=== PATIENT | female | born 1935 | race Caucasian/White ===

== ENCOUNTER 2017-07-30 10:10 | Inpatient (IN) | payer OTHER, MEDICAID, MEDICARE ==
[2017-07-30 12:19] LABS: WHITE BLOOD COUNT 16.5 10^3/ul (4.8-10.8)
[2017-07-30 12:19] LABS: ABNORMAL IP MESSAGE 1; HEMATOCRIT 37.7 % (37.0-47.0); HEMOGLOBIN 13.1 g/dl (12.0-16.0); MEAN CORPUSCULAR HEMOGLOBIN 29.5 pg (29.0-33.0); MEAN CORPUSCULAR HGB CONC 34.7 g/dl (32.0-37.0); MEAN CORPUSCULAR VOLUME 84.9 fl (82.0-101.0); MEAN PLATELET VOLUME 11.4 fl (7.4-10.4); PLATELET COUNT 179 10^3/UL (140-415); RED BLOOD COUNT 4.44 10^6/ul (4.20-5.40)
[2017-07-30 12:34] LABS: ADD MAN DIFF? YES; POSITIVE DIFF @See below
[2017-07-30 12:37] LABS: INR 1.09; PROTIME 14.3 Sec (11.9-14.9); PT RATIO 1.1
[2017-07-30 12:38] LABS: ANION GAP 15 (8-16); BLOOD UREA NITROGEN 44 mg/dl (7-20); CALCIUM 8.9 mg/dl (8.4-10.2); CARBON DIOXIDE 25 mmol/L (21-31); CHLORIDE 96 mmol/L (97-110); CREATININE 1.79 mg/dl (0.44-1.00); GLUCOSE 105 mg/dl (70-220); PARTIAL THROMBOPLASTIN TIME 34.6 Sec (25.0-35.0); POTASSIUM 3.7 mmol/L (3.5-5.1); SODIUM 132 mmol/L (135-144)
[2017-07-30 12:49] LABS: TROPONIN-I 0.041 ng/ml (0.00-0.12)
[2017-07-30] MEDS: VANCOMYCIN 1 GM (PMX) 250 ML IVPB (13:00)
[2017-07-30 13:13] LABS: ANISOCYTOSIS 1+ (0-0); BAND NEUTROPHILS #M 1.4 10^3/ul (0.0-0.6); BAND NEUTROPHILS % (M) 9 % (0-4); EOSINOPHILS % (M) 1 % (0-7); LYMPHOCYTES #M 1.3 10^3/ul (0.8-2.9); LYMPHOCYTES % (M) 8 % (15-51); METAMYELOCYTES #M 0.1 10^3/ul (0.0-0.0); METAMYELOCYTES %M 1 % (0-0); MONOCYTE #M 1.4 10^3/ul (0.3-0.9); MONOCYTES % (M) 9 % (0-11); MYELOCYTES #M 0.1 10^3/ul (0.0-0.0); MYELOCYTES % (M) 1 % (0-0); PLASMA CELLS #M 0.4 10^3/ul (0.0-0.0); PLASMAC%(M) 3 % (0); PLATELET ESTIMATE NORMAL; POIKILOCYTOSIS 3+ (0-0); POLYCHROMASIA 3+ (0-0); SEG NEUT #M 11.5 10^3/ul (1.7-7.5); SEGMENTED NEUTROPHILS (M) % 68 % (39-77); SMUDGE%M 1 % (0-0)
[2017-07-30] MEDS: SODIUM CHLORIDE 0.9% 1L BAG IV* (13:20)
[2017-07-30] MEDS ORDERED: ACETAMINOPHEN 325 MG TAB PO (14:30)
[2017-07-30] MEDS ORDERED: ONDANSETRON 4 MG INJ IV ×2 (14:30→16:00)
[2017-07-30 14:40] LABS: LACTIC ACID 1.9 mmol/L (0.5-2.0)
[2017-07-30] MEDS: CEFEPIME 2GM/50 ML (PMX) 50 ML IVPB (15:29)
[2017-07-30] MEDS ORDERED: ALBUTEROL/IPRATROPIUM (NEB) 3 ML AMP HHN (16:00)
[2017-07-30] MEDS ORDERED: NACL 0.9% 3 ML SYG IV (16:00)
[2017-07-30 16:13] LABS: LACTIC ACID 2.4 mmol/L (0.5-2.0)
[2017-07-30] MEDS: SOD CHLORIDE 0.9% 1,000 ML IV (17:41)
[2017-07-30] MEDS ORDERED: AZITHROMYCIN 500MG/NS (PMX) 250 ML IVPB (18:00)
[2017-07-30] MEDS: CEFTRIAXONE 2 GM/50 ML (PMX) 50 ML IVPB (18:03)
[2017-07-30 18:33] LABS: LACTIC ACID 2.5 mmol/L (0.5-2.0)
[2017-07-30] MEDS: AZITHROMYCIN 500MG/NS (PMX) 250 ML IVPB (18:39)
[2017-07-30] MEDS: NIFEdipine (XL) 60 MG TAB PO (19:00)
[2017-07-30] MEDS: ALBUTEROL/IPRATROPIUM (NEB) 3 ML AMP HHN (20:43)
[2017-07-30] MEDS ORDERED: CALCIUM CARBONATE 500 MG CHEW TAB PO (21:00)
[2017-07-30] MEDS: BRIMONIDINE 0.1% 5 ML OPH BOTH EYES (21:04)
[2017-07-30] MEDS: COLESEVELAM 625 MG TAB PO (21:07)
[2017-07-30] MEDS: HEPARIN 5,000 UNIT/0.5 ML VIAL SC (22:33)
[2017-07-31 00:05] LABS: ADD UMIC YES; UR ASCORBIC ACID NEGATIVE (NEGATIVE); UR BACTERIA FEW /HPF (NONE SEEN); UR BILIRUBIN (Dip) NEGATIVE (NEGATIVE); UR BLOOD (Dip) 2+ mg/dL (NEGATIVE); UR CLARITY CLOUDY (CLEAR); UR COLOR YELLOW (YELLOW); UR GLUCOSE (Dip) NEGATIVE (NEGATIVE); UR KETONES (Dip) NEGATIVE (NEGATIVE); UR LEUKOCYTE ESTERASE (Dip) 3+ Leu/ul (NEGATIVE); UR NITRITE (Dip) NEGATIVE (NEGATIVE); UR RBC 34 /HPF (0-5); UR SPECIFIC GRAVITY (Dip) 1.011 (1.003-1.030); UR TOTAL PROTEIN (Dip) 1+ mg/dl (NEGATIVE); UR UROBILINOGEN (Dip) NEGATIVE (NEGATIVE); UR WBC > 182 /HPF (0-5)
[2017-07-31] MEDS ORDERED: LEVOTHYROXINE 50 MCG TAB (05:39)
[2017-07-31] MEDS: HEPARIN 5,000 UNIT/0.5 ML VIAL SC ×3 (05:54→21:44)
[2017-07-31] MEDS: LEVOTHYROXINE 50 MCG TAB PO (06:21)
[2017-07-31 06:38] LABS: WHITE BLOOD COUNT 17.8 10^3/ul (4.8-10.8)
[2017-07-31 06:38] LABS: ABNORMAL IP MESSAGE 1; HEMATOCRIT 31.7 % (37.0-47.0); HEMOGLOBIN 11.1 g/dl (12.0-16.0); MEAN CORPUSCULAR HEMOGLOBIN 29.5 pg (29.0-33.0); MEAN CORPUSCULAR VOLUME 84.3 fl (82.0-101.0); MEAN PLATELET VOLUME 11.1 fl (7.4-10.4); PLATELET COUNT 206 10^3/UL (140-415); RED BLOOD COUNT 3.76 10^6/ul (4.20-5.40); RED CELL DISTRIBUTION WIDTH 14.2 % (11.5-14.5)
[2017-07-31 06:50] LABS: POSITIVE DIFF @See below
[2017-07-31 06:51] LABS: ADD MAN DIFF? YES
[2017-07-31 07:13] LABS: LACTIC ACID 1.4 mmol/L (0.5-2.0)
[2017-07-31] MEDS: ALBUTEROL/IPRATROPIUM (NEB) 3 ML AMP HHN ×3 (08:43→19:07)
[2017-07-31 09:22] LABS: CREATINE KINASE < 20 IU/L (23-200)
[2017-07-31 09:25] LABS: BAND NEUTROPHILS #M 1.4 10^3/ul (0.0-0.6); BAND NEUTROPHILS % (M) 8 % (0-4); BURR CELLS 1+ (0-0); GIANT THROMBO% (M) 1 % (0-0); LYMPHOCYTES #M 2.4 10^3/ul (0.8-2.9); LYMPHOCYTES % (M) 14 % (15-51); METAMYELOCYTES #M 0.1 10^3/ul (0.0-0.0); METAMYELOCYTES %M 1 % (0-0); MONOCYTE #M 1.6 10^3/ul (0.3-0.9); MONOCYTES % (M) 9 % (0-11); PLATELET ESTIMATE NORMAL; POIKILOCYTOSIS 1+ (0-0); SEG NEUT #M 12.2 10^3/ul (1.7-7.5); SEGMENTED NEUTROPHILS (M) % 67 % (39-77); SMUDGE%M 5 % (0-0)
[2017-07-31 09:30] LABS: ALANINE AMINOTRANSFERASE 30 IU/L (13-69); ALBUMIN 2.5 g/dl (3.3-4.9); ALKALINE PHOSPHATASE 266 IU/L (42-121); ANION GAP 13 (8-16); ASPARTATE AMINO TRANSFERASE 35 IU/L (15-46); BILIRUBIN,INDIRECT 0.3 mg/dl (0-1.1); BILIRUBIN,TOTAL 0.3 mg/dl (0.2-1.3); BLOOD UREA NITROGEN 23 mg/dl (7-20); CALCIUM 8.2 mg/dl (8.4-10.2); CARBON DIOXIDE 25 mmol/L (21-31); CHLORIDE 99 mmol/L (97-110); CREATININE 1.23 mg/dl (0.44-1.00); GLUCOSE 113 mg/dl (70-220); POTASSIUM 3.9 mmol/L (3.5-5.1); SODIUM 133 mmol/L (135-144); TOTAL PROTEIN 5.7 g/dl (6.1-8.1)
[2017-07-31 09:31] LABS: ALBUMIN/GLOBULIN RATIO 0.78
[2017-07-31] MEDS: SOD CHLORIDE 0.9% 1,000 ML IV ×2 (09:40→15:00)
[2017-07-31] MEDS: DOCUSATE SODIUM 100 MG CAP PO ×2 (09:47→21:33)
[2017-07-31] MEDS: BRIMONIDINE 0.1% 5 ML OPH BOTH EYES ×2 (09:47→21:33)
[2017-07-31] MEDS: POLYETHYLENE GLYCOL 17 GM PACKET PO (09:47)
[2017-07-31] MEDS: COLESEVELAM 625 MG TAB PO ×2 (09:49→21:33)
[2017-07-31] MEDS: NIFEdipine (XL) 60 MG TAB PO ×2 (09:49→21:33)
[2017-07-31] MEDS: ASPIRIN 81 MG TAB PO (09:50)
[2017-07-31] MEDS: CALCIUM CARBONATE 500 MG CHEW TAB PO ×2 (09:51→21:33)
[2017-07-31 13:16] LABS: CK-MB 0.58 ng/ml (0.0-2.4); TROPONIN-I 0.044 ng/ml (0.00-0.12)
[2017-07-31 14:04] LABS: HEMOGLOBIN A1C 5.8 % (0-5.9)
[2017-07-31 14:13] LABS: PHOSPHORUS 3.5 mg/dl (2.5-4.9)
[2017-07-31 14:13] LABS: MAGNESIUM 2.1 mg/dl (1.7-2.5)
[2017-07-31 14:31] LABS: FREE T4 (FREE THYROXINE) 1.38 ng/dl (0.85-1.93)
[2017-07-31 14:47] LABS: CHOL/HDL RATIO 9.4 RATIO; HDL CHOLESTEROL 15 mg/dl (33-92); LDL CHOLESTEROL,CALCULATED 79 mg/dl; TRIGLYCERIDES 238 mg/dl (0-149)
[2017-07-31 14:47] LABS: CHOLESTEROL 142 mg/dl (100-200)
[2017-07-31] MEDS: AZITHROMYCIN 500MG/NS (PMX) 250 ML IVPB (17:18)
[2017-07-31 19:35] LABS: ADD UMIC YES; UR ASCORBIC ACID NEGATIVE (NEGATIVE); UR BILIRUBIN (Dip) NEGATIVE (NEGATIVE); UR BLOOD (Dip) 1+ mg/dL (NEGATIVE); UR CLARITY CLEAR (CLEAR); UR COLOR YELLOW (YELLOW); UR GLUCOSE (Dip) NEGATIVE (NEGATIVE); UR KETONES (Dip) NEGATIVE (NEGATIVE); UR LEUKOCYTE ESTERASE (Dip) TRACE Leu/ul (NEGATIVE); UR NITRITE (Dip) NEGATIVE (NEGATIVE); UR RBC 8 /HPF (0-5); UR SPECIFIC GRAVITY (Dip) 1.009 (1.003-1.030); UR TOTAL PROTEIN (Dip) NEGATIVE (NEGATIVE); UR UROBILINOGEN (Dip) NEGATIVE (NEGATIVE); UR WBC 20 /HPF (0-5)
[2017-07-31 20:33] LABS: CREATININE,URINE RANDOM 39.95 mg/dl (20-320)
[2017-07-31 20:33] LABS: SODIUM,URINE RANDOM 80 mmol/L (30-90)
[2017-07-31] MEDS: ZOLPIDEM 5 MG TAB PO (21:33)
[2017-07-31] MEDS: AZTREONAM 1 GM/NS (PMX) 50 ML IVPB (21:34)
[2017-08-01 04:55] LABS: ADD MAN DIFF? NO
[2017-08-01 04:59] LABS: ABNORMAL IP MESSAGE 1; BASOPHIL # 0.1 10^3/ul (0.0-0.1); BASOPHILS % 0.7 % (0.0-2.0); EOSINOPHILS # 0.1 10^3/ul (0.0-0.5); EOSINOPHILS % 0.7 % (0.0-7.0); HEMATOCRIT 29.2 % (37.0-47.0); HEMOGLOBIN 10.3 g/dl (12.0-16.0); LYMPHOCYTES # 2.5 10^3/ul (0.8-2.9); LYMPHOCYTES % 14.9 % (15.0-51.0); MEAN CORPUSCULAR HEMOGLOBIN 29.3 pg (29.0-33.0); MEAN CORPUSCULAR HGB CONC 35.3 g/dl (32.0-37.0); MEAN CORPUSCULAR VOLUME 83.2 fl (82.0-101.0); MEAN PLATELET VOLUME 10.6 fl (7.4-10.4); MONOCYTE # 2.4 10^3/ul (0.3-0.9); MONOCYTES % 14.6 % (0.0-11.0); NEUTROPHIL # 10.6 10^3/ul (1.6-7.5); NEUTROPHILS % 64.4 % (39.0-77.0); PLATELET COUNT 220 10^3/UL (140-415); RED BLOOD COUNT 3.51 10^6/ul (4.20-5.40); RED CELL DISTRIBUTION WIDTH 14.2 % (11.5-14.5)
[2017-08-01 04:59] LABS: WHITE BLOOD COUNT 16.4 10^3/ul (4.8-10.8)
[2017-08-01 05:12] LABS: POSITIVE DIFF @See below
[2017-08-01 05:31] LABS: PHOSPHORUS 2.9 mg/dl (2.5-4.9)
[2017-08-01 05:31] LABS: MAGNESIUM 2.1 mg/dl (1.7-2.5)
[2017-08-01 05:32] LABS: ANION GAP 11 (8-16); BLOOD UREA NITROGEN 14 mg/dl (7-20); CALCIUM 8.3 mg/dl (8.4-10.2); CARBON DIOXIDE 25 mmol/L (21-31); CHLORIDE 101 mmol/L (97-110); CREATININE 1.05 mg/dl (0.44-1.00); GLUCOSE 128 mg/dl (70-220); POTASSIUM 3.4 mmol/L (3.5-5.1); SODIUM 134 mmol/L (135-144)
[2017-08-01] MEDS: LEVOTHYROXINE 50 MCG TAB PO (06:04)
[2017-08-01] MEDS: HEPARIN 5,000 UNIT/0.5 ML VIAL SC ×3 (06:05→21:11)
[2017-08-01] MEDS: BRIMONIDINE 0.1% 5 ML OPH BOTH EYES ×2 (08:33→21:13)
[2017-08-01] MEDS: CALCIUM CARBONATE 500 MG CHEW TAB PO ×2 (08:33→21:12)
[2017-08-01] MEDS: DOCUSATE SODIUM 100 MG CAP PO ×2 (08:34→21:13)
[2017-08-01] MEDS: NIFEdipine (XL) 60 MG TAB PO ×2 (08:34→21:00)
[2017-08-01] MEDS: COLESEVELAM 625 MG TAB PO ×2 (08:34→21:10)
[2017-08-01] MEDS: POLYETHYLENE GLYCOL 17 GM PACKET PO (08:35)
[2017-08-01] MEDS: ASPIRIN 81 MG TAB PO (08:38)
[2017-08-01] MEDS: AZTREONAM 1 GM/NS (PMX) 50 ML IVPB ×2 (08:39→21:14)
[2017-08-01] MEDS: ALBUTEROL/IPRATROPIUM (NEB) 3 ML AMP HHN ×3 (08:47→19:25)
[2017-08-01] MEDS: POTASSIUM CHLORIDE (SR) 20 MEQ TAB PO (10:49)
[2017-08-01] MEDS: SOD CHLORIDE 0.9% 1,000 ML IV (10:52)
[2017-08-01] MEDS: NA PHOSPHATE/BIPHOS 133 ML ENEMA PR (13:55)
[2017-08-01] MEDS: AZITHROMYCIN 500MG/NS (PMX) 250 ML IVPB (17:23)
[2017-08-01] MEDS: FISH OIL 1,000 MG CAP PO (21:13)
[2017-08-02 05:15] LABS: ADD MAN DIFF? NO
[2017-08-02 05:17] LABS: WHITE BLOOD COUNT 19.7 10^3/ul (4.8-10.8)
[2017-08-02 05:17] LABS: ABNORMAL IP MESSAGE 1; BASOPHIL # 0.1 10^3/ul (0.0-0.1); BASOPHILS % 0.4 % (0.0-2.0); EOSINOPHILS # 0.2 10^3/ul (0.0-0.5); EOSINOPHILS % 0.9 % (0.0-7.0); HEMATOCRIT 28.4 % (37.0-47.0); HEMOGLOBIN 10.1 g/dl (12.0-16.0); LYMPHOCYTES # 2.2 10^3/ul (0.8-2.9); LYMPHOCYTES % 11.2 % (15.0-51.0); MEAN CORPUSCULAR HEMOGLOBIN 29.9 pg (29.0-33.0); MEAN CORPUSCULAR HGB CONC 35.6 g/dl (32.0-37.0); MEAN PLATELET VOLUME 10.2 fl (7.4-10.4); MONOCYTE # 2.8 10^3/ul (0.3-0.9); MONOCYTES % 14.1 % (0.0-11.0); NEUTROPHIL # 13.7 10^3/ul (1.6-7.5); NEUTROPHILS % 69.4 % (39.0-77.0); PLATELET COUNT 260 10^3/UL (140-415); RED BLOOD COUNT 3.38 10^6/ul (4.20-5.40); RED CELL DISTRIBUTION WIDTH 14.5 % (11.5-14.5)
[2017-08-02] MEDS: BISACODYL (EC) 5 MG TAB PO (05:17)
[2017-08-02] MEDS: LEVOTHYROXINE 50 MCG TAB PO (05:17)
[2017-08-02 05:22] LABS: POSITIVE DIFF @See below
[2017-08-02] MEDS: HEPARIN 5,000 UNIT/0.5 ML VIAL SC ×3 (05:22→20:40)
[2017-08-02 05:33] LABS: ANION GAP 11 (8-16); BLOOD UREA NITROGEN 10 mg/dl (7-20); CALCIUM 8.5 mg/dl (8.4-10.2); CARBON DIOXIDE 27 mmol/L (21-31); CHLORIDE 100 mmol/L (97-110); CREATININE 0.84 mg/dl (0.44-1.00); GLUCOSE 129 mg/dl (70-220); MAGNESIUM 1.9 mg/dl (1.7-2.5); PHOSPHORUS 2.6 mg/dl (2.5-4.9); POTASSIUM 3.9 mmol/L (3.5-5.1); SODIUM 134 mmol/L (135-144)
[2017-08-02] MEDS: ALBUTEROL/IPRATROPIUM (NEB) 3 ML AMP HHN ×3 (08:00→20:29)
[2017-08-02] MEDS: DOCUSATE SODIUM 100 MG CAP PO ×2 (08:16→20:48)
[2017-08-02] MEDS: FISH OIL 1,000 MG CAP PO ×2 (08:16→20:38)
[2017-08-02] MEDS: CALCIUM CARBONATE 500 MG CHEW TAB PO ×2 (08:16→20:39)
[2017-08-02] MEDS: COLESEVELAM 625 MG TAB PO ×2 (08:16→20:38)
[2017-08-02] MEDS: POLYETHYLENE GLYCOL 17 GM PACKET PO (08:16)
[2017-08-02] MEDS: BRIMONIDINE 0.1% 5 ML OPH BOTH EYES ×2 (08:16→20:38)
[2017-08-02] MEDS: ASPIRIN 81 MG TAB PO (08:20)
[2017-08-02] MEDS: AZTREONAM 1 GM/NS (PMX) 50 ML IVPB ×2 (08:20→20:32)
[2017-08-02] MEDS: NIFEdipine (XL) 60 MG TAB PO ×2 (09:00→20:39)
[2017-08-02 14:07] LABS: CREATININE, RANDOM URINE 49 mg/dL (20-320); MICROALBUMIN/CREATININE RATIO 102 (<30)
[2017-08-02] MEDS: AZITHROMYCIN 500MG/NS (PMX) 250 ML IVPB (17:16)
[2017-08-02] MEDS: CEFEPIME 1GM/50 ML (PMX) 50 ML IVPB (21:37)
[2017-08-03] MEDS: LEVOTHYROXINE 50 MCG TAB PO (05:17)
[2017-08-03] MEDS: HEPARIN 5,000 UNIT/0.5 ML VIAL SC ×3 (05:20→23:10)
[2017-08-03 06:45] LABS: ADD MAN DIFF? NO
[2017-08-03 06:48] LABS: ABNORMAL IP MESSAGE 1; BASOPHIL # 0.1 10^3/ul (0.0-0.1); BASOPHILS % 0.5 % (0.0-2.0); EOSINOPHILS # 0.4 10^3/ul (0.0-0.5); EOSINOPHILS % 1.9 % (0.0-7.0); HEMATOCRIT 29.8 % (37.0-47.0); HEMOGLOBIN 10.5 g/dl (12.0-16.0); LYMPHOCYTES # 2.2 10^3/ul (0.8-2.9); LYMPHOCYTES % 10.7 % (15.0-51.0); MEAN CORPUSCULAR HEMOGLOBIN 29.7 pg (29.0-33.0); MEAN CORPUSCULAR HGB CONC 35.2 g/dl (32.0-37.0); MEAN CORPUSCULAR VOLUME 84.4 fl (82.0-101.0); MEAN PLATELET VOLUME 10.3 fl (7.4-10.4); MONOCYTE # 2.6 10^3/ul (0.3-0.9); MONOCYTES % 12.6 % (0.0-11.0); NEUTROPHIL # 14.7 10^3/ul (1.6-7.5); NEUTROPHILS % 71.2 % (39.0-77.0); PLATELET COUNT 333 10^3/UL (140-415); RED BLOOD COUNT 3.53 10^6/ul (4.20-5.40); RED CELL DISTRIBUTION WIDTH 14.4 % (11.5-14.5)
[2017-08-03 06:48] LABS: WHITE BLOOD COUNT 20.7 10^3/ul (4.8-10.8)
[2017-08-03 07:04] LABS: POSITIVE DIFF @See below
[2017-08-03 07:20] LABS: ANION GAP 15 (8-16); BLOOD UREA NITROGEN 10 mg/dl (7-20); CALCIUM 8.6 mg/dl (8.4-10.2); CARBON DIOXIDE 28 mmol/L (21-31); CHLORIDE 98 mmol/L (97-110); CREATININE 0.82 mg/dl (0.44-1.00); GLUCOSE 108 mg/dl (70-220); POTASSIUM 3.5 mmol/L (3.5-5.1); SODIUM 137 mmol/L (135-144)
[2017-08-03 07:29] LABS: MAGNESIUM 1.7 mg/dl (1.7-2.5)
[2017-08-03 07:29] LABS: PHOSPHORUS 3.3 mg/dl (2.5-4.9)
[2017-08-03] MEDS: ALBUTEROL/IPRATROPIUM (NEB) 3 ML AMP HHN ×3 (07:39→20:15)
[2017-08-03] MEDS: DOCUSATE SODIUM 100 MG CAP PO ×2 (09:00→20:23)
[2017-08-03] MEDS: POLYETHYLENE GLYCOL 17 GM PACKET PO (09:00)
[2017-08-03] MEDS: CALCIUM CARBONATE 500 MG CHEW TAB PO ×2 (09:16→20:23)
[2017-08-03] MEDS: NIFEdipine (XL) 60 MG TAB PO ×2 (09:17→20:17)
[2017-08-03] MEDS: BRIMONIDINE 0.1% 5 ML OPH BOTH EYES ×2 (09:17→20:25)
[2017-08-03] MEDS: CEFEPIME 1GM/50 ML (PMX) 50 ML IVPB ×2 (09:17→20:22)
[2017-08-03] MEDS: COLESEVELAM 625 MG TAB PO ×2 (09:17→20:23)
[2017-08-03] MEDS: ASPIRIN 81 MG TAB PO (09:17)
[2017-08-03] MEDS: FISH OIL 1,000 MG CAP PO ×2 (09:17→20:23)
[2017-08-03] MEDS: AZTREONAM 1 GM/NS (PMX) 50 ML IVPB (10:33)
[2017-08-03 11:19] LABS: B-TYPE NATRIURETIC PEPTIDE 3040 PG/ML (0-450)
[2017-08-03] MEDS: ACETAMINOPHEN 325 MG TAB PO (15:18)
[2017-08-03] MEDS: metroNIDAZOLE 500 MG/NS (PMX) 100 ML IVPB (17:57)
[2017-08-03] MEDS: VANCOMYCIN HCL 250 MG/5ML POSYG PO ×2 (17:58→23:10)
[2017-08-03] MEDS: DOXYCYCLINE 100 MG in SOD CHLORIDE 0.9% 250 ML IVPB (21:09)
[2017-08-04] MEDS: metroNIDAZOLE 500 MG/NS (PMX) 100 ML IVPB ×5 (01:16→21:20)
[2017-08-04] MEDS: ACETAMINOPHEN 325 MG TAB PO (02:26)
[2017-08-04] MEDS: GUAIFENESIN/DM 5ML CUP PO ×4 (03:05→21:20)
[2017-08-04 04:19] LABS: ADD MAN DIFF? NO
[2017-08-04 04:22] LABS: WHITE BLOOD COUNT 17.7 10^3/ul (4.8-10.8)
[2017-08-04 04:22] LABS: ABNORMAL IP MESSAGE 1; BASOPHIL # 0.1 10^3/ul (0.0-0.1); BASOPHILS % 0.5 % (0.0-2.0); EOSINOPHILS # 0.4 10^3/ul (0.0-0.5); EOSINOPHILS % 2.4 % (0.0-7.0); HEMATOCRIT 26.4 % (37.0-47.0); HEMOGLOBIN 9.2 g/dl (12.0-16.0); LYMPHOCYTES # 1.4 10^3/ul (0.8-2.9); LYMPHOCYTES % 7.9 % (15.0-51.0); MEAN CORPUSCULAR HEMOGLOBIN 29.6 pg (29.0-33.0); MEAN CORPUSCULAR HGB CONC 34.8 g/dl (32.0-37.0); MEAN CORPUSCULAR VOLUME 84.9 fl (82.0-101.0); MONOCYTE # 2.2 10^3/ul (0.3-0.9); MONOCYTES % 12.5 % (0.0-11.0); NEUTROPHIL # 13.2 10^3/ul (1.6-7.5); NEUTROPHILS % 74.6 % (39.0-77.0); PLATELET COUNT 358 10^3/UL (140-415); RED BLOOD COUNT 3.11 10^6/ul (4.20-5.40); RED CELL DISTRIBUTION WIDTH 14.2 % (11.5-14.5)
[2017-08-04 04:53] LABS: MAGNESIUM 1.7 mg/dl (1.7-2.5)
[2017-08-04 04:57] LABS: ANION GAP 11 (8-16); BLOOD UREA NITROGEN 10 mg/dl (7-20); CALCIUM 8.2 mg/dl (8.4-10.2); CARBON DIOXIDE 28 mmol/L (21-31); CHLORIDE 97 mmol/L (97-110); CREATININE 0.81 mg/dl (0.44-1.00); GLUCOSE 125 mg/dl (70-220); SODIUM 133 mmol/L (135-144)
[2017-08-04 05:08] LABS: POSITIVE DIFF @See below
[2017-08-04 05:15] LABS: POTASSIUM 2.9 mmol/L (3.5-5.1)
[2017-08-04] MEDS: POTASSIUM CHLORIDE (SR) 20 MEQ TAB PO (06:14)
[2017-08-04] MEDS: LEVOTHYROXINE 50 MCG TAB PO (06:14)
[2017-08-04] MEDS: VANCOMYCIN HCL 250 MG/5ML POSYG PO ×3 (06:14→17:02)
[2017-08-04] MEDS: HEPARIN 5,000 UNIT/0.5 ML VIAL SC ×3 (06:15→22:25)
[2017-08-04] MEDS: MAGNESIUM SULFATE 2 GM/50 ML 50 ML IVPB (06:21)
[2017-08-04] MEDS: ALBUTEROL/IPRATROPIUM (NEB) 3 ML AMP HHN ×3 (08:24→20:52)
[2017-08-04] MEDS: FISH OIL 1,000 MG CAP PO ×2 (08:45→20:42)
[2017-08-04] MEDS: CALCIUM CARBONATE 500 MG CHEW TAB PO ×2 (08:45→20:42)
[2017-08-04] MEDS: DOCUSATE SODIUM 100 MG CAP PO ×2 (08:45→20:42)
[2017-08-04] MEDS: CEFEPIME 1GM/50 ML (PMX) 50 ML IVPB ×2 (08:45→20:43)
[2017-08-04] MEDS: ASPIRIN 81 MG TAB PO (08:45)
[2017-08-04] MEDS: COLESEVELAM 625 MG TAB PO ×2 (08:46→20:42)
[2017-08-04] MEDS: POLYETHYLENE GLYCOL 17 GM PACKET PO (08:46)
[2017-08-04] MEDS: NIFEdipine (XL) 60 MG TAB PO ×2 (08:46→21:00)
[2017-08-04] MEDS: BRIMONIDINE 0.1% 5 ML OPH BOTH EYES ×2 (08:53→20:42)
[2017-08-04] MEDS: DOXYCYCLINE 100 MG in SOD CHLORIDE 0.9% 250 ML IVPB (09:00)
[2017-08-04] MEDS ORDERED: DOXYCYCLINE 100 MG in DEXTROSE 5% 250 ML IVPB (16:35)
[2017-08-04] MEDS ORDERED: VITAMIN A & D 5 GM OINT PACKET TOP (21:30)
[2017-08-04] MEDS: DOXYCYCLINE 100 MG in DEXTROSE 5% 250 ML IVPB (22:24)
[2017-08-05] MEDS: metroNIDAZOLE 500 MG/NS (PMX) 100 ML IVPB ×3 (05:49→22:07)
[2017-08-05] MEDS: LEVOTHYROXINE 50 MCG TAB PO (05:50)
[2017-08-05 05:51] LABS: ADD MAN DIFF? NO
[2017-08-05] MEDS: HEPARIN 5,000 UNIT/0.5 ML VIAL SC ×3 (05:51→22:02)
[2017-08-05] MEDS: GUAIFENESIN/DM 5ML CUP PO ×2 (05:53→12:31)
[2017-08-05 06:05] LABS: WHITE BLOOD COUNT 17.5 10^3/ul (4.8-10.8)
[2017-08-05 06:05] LABS: ABNORMAL IP MESSAGE 1; BASOPHIL # 0.1 10^3/ul (0.0-0.1); BASOPHILS % 0.6 % (0.0-2.0); EOSINOPHILS # 0.5 10^3/ul (0.0-0.5); EOSINOPHILS % 2.8 % (0.0-7.0); HEMATOCRIT 27.7 % (37.0-47.0); HEMOGLOBIN 9.5 g/dl (12.0-16.0); LYMPHOCYTES % 11.6 % (15.0-51.0); MEAN CORPUSCULAR HEMOGLOBIN 29.4 pg (29.0-33.0); MEAN CORPUSCULAR HGB CONC 34.3 g/dl (32.0-37.0); MEAN CORPUSCULAR VOLUME 85.8 fl (82.0-101.0); MEAN PLATELET VOLUME 10.5 fl (7.4-10.4); MONOCYTE # 2.7 10^3/ul (0.3-0.9); MONOCYTES % 15.1 % (0.0-11.0); NEUTROPHILS % 68.4 % (39.0-77.0); PLATELET COUNT 407 10^3/UL (140-415); RED BLOOD COUNT 3.23 10^6/ul (4.20-5.40); RED CELL DISTRIBUTION WIDTH 14.6 % (11.5-14.5)
[2017-08-05 07:04] LABS: POSITIVE DIFF @See below
[2017-08-05 07:09] LABS: ANION GAP 13 (8-16); BLOOD UREA NITROGEN 8 mg/dl (7-20); CALCIUM 8.5 mg/dl (8.4-10.2); CARBON DIOXIDE 28 mmol/L (21-31); CHLORIDE 98 mmol/L (97-110); GLUCOSE 98 mg/dl (70-220); MAGNESIUM 1.9 mg/dl (1.7-2.5); PHOSPHORUS 3.1 mg/dl (2.5-4.9); POTASSIUM 4.7 mmol/L (3.5-5.1); SODIUM 134 mmol/L (135-144)
[2017-08-05] MEDS: ALBUTEROL/IPRATROPIUM (NEB) 3 ML AMP HHN ×3 (07:23→19:03)
[2017-08-05] MEDS: CALCIUM CARBONATE 500 MG CHEW TAB PO ×2 (08:30→20:01)
[2017-08-05] MEDS: COLESEVELAM 625 MG TAB PO ×2 (08:30→20:00)
[2017-08-05] MEDS: NIFEdipine (XL) 60 MG TAB PO ×2 (08:30→20:01)
[2017-08-05] MEDS: FISH OIL 1,000 MG CAP PO ×2 (08:30→20:00)
[2017-08-05] MEDS: POLYETHYLENE GLYCOL 17 GM PACKET PO (08:31)
[2017-08-05] MEDS: ASPIRIN 81 MG TAB PO (08:31)
[2017-08-05] MEDS: CEFEPIME 1GM/50 ML (PMX) 50 ML IVPB ×2 (08:31→20:00)
[2017-08-05] MEDS: DOCUSATE SODIUM 100 MG CAP PO ×2 (08:31→20:01)
[2017-08-05] MEDS: BRIMONIDINE 0.1% 5 ML OPH BOTH EYES ×2 (08:31→20:00)
[2017-08-05] MEDS: DOXYCYCLINE 100 MG in DEXTROSE 5% 250 ML IVPB ×2 (09:35→21:06)
[2017-08-06] MEDS: HEPARIN 5,000 UNIT/0.5 ML VIAL SC ×3 (06:00→21:19)
[2017-08-06] MEDS: metroNIDAZOLE 500 MG/NS (PMX) 100 ML IVPB ×3 (06:01→22:40)
[2017-08-06] MEDS: LEVOTHYROXINE 50 MCG TAB PO (06:58)
[2017-08-06 07:08] LABS: ADD MAN DIFF? NO
[2017-08-06 07:14] LABS: WHITE BLOOD COUNT 12.8 10^3/ul (4.8-10.8)
[2017-08-06 07:14] LABS: ABNORMAL IP MESSAGE 1; BASOPHIL # 0.1 10^3/ul (0.0-0.1); BASOPHILS % 0.5 % (0.0-2.0); EOSINOPHILS # 0.4 10^3/ul (0.0-0.5); EOSINOPHILS % 2.9 % (0.0-7.0); HEMATOCRIT 25.5 % (37.0-47.0); HEMOGLOBIN 8.7 g/dl (12.0-16.0); LYMPHOCYTES # 1.8 10^3/ul (0.8-2.9); LYMPHOCYTES % 14.2 % (15.0-51.0); MEAN CORPUSCULAR HEMOGLOBIN 29.7 pg (29.0-33.0); MEAN CORPUSCULAR HGB CONC 34.1 g/dl (32.0-37.0); MEAN PLATELET VOLUME 10.3 fl (7.4-10.4); MONOCYTE # 2.1 10^3/ul (0.3-0.9); MONOCYTES % 16.2 % (0.0-11.0); NEUTROPHIL # 8.3 10^3/ul (1.6-7.5); NEUTROPHILS % 64.8 % (39.0-77.0); PLATELET COUNT 439 10^3/UL (140-415); RED BLOOD COUNT 2.93 10^6/ul (4.20-5.40); RED CELL DISTRIBUTION WIDTH 14.7 % (11.5-14.5)
[2017-08-06 07:29] LABS: POSITIVE DIFF @See below
[2017-08-06 07:41] LABS: BLOOD UREA NITROGEN 8 mg/dl (7-20); CALCIUM 8.3 mg/dl (8.4-10.2); CHLORIDE 96 mmol/L (97-110); CREATININE 0.77 mg/dl (0.44-1.00); GLUCOSE 96 mg/dl (70-220); POTASSIUM 3.3 mmol/L (3.5-5.1)
[2017-08-06 07:43] LABS: MAGNESIUM 1.7 mg/dl (1.7-2.5)
[2017-08-06] MEDS: ALBUTEROL/IPRATROPIUM (NEB) 3 ML AMP HHN ×3 (08:00→23:27)
[2017-08-06] MEDS: CEFEPIME 1GM/50 ML (PMX) 50 ML IVPB ×2 (08:24→21:06)
[2017-08-06 08:37] LABS: CARBON DIOXIDE 28 mmol/L (21-31); SODIUM 132 mmol/L (135-144)
[2017-08-06 08:44] LABS: ANION GAP 11 (8-16)
[2017-08-06] MEDS: ASPIRIN 81 MG TAB PO (08:50)
[2017-08-06] MEDS: CALCIUM CARBONATE 500 MG CHEW TAB PO ×2 (08:50→21:05)
[2017-08-06] MEDS: POLYETHYLENE GLYCOL 17 GM PACKET PO (08:50)
[2017-08-06] MEDS: FISH OIL 1,000 MG CAP PO ×2 (08:50→21:03)
[2017-08-06] MEDS: BRIMONIDINE 0.1% 5 ML OPH BOTH EYES ×2 (08:50→21:06)
[2017-08-06] MEDS: DOCUSATE SODIUM 100 MG CAP PO ×2 (08:50→21:03)
[2017-08-06] MEDS: NIFEdipine (XL) 60 MG TAB PO ×2 (08:51→21:00)
[2017-08-06] MEDS: COLESEVELAM 625 MG TAB PO ×2 (08:51→21:05)
[2017-08-06] MEDS: DOXYCYCLINE 100 MG in DEXTROSE 5% 250 ML IVPB ×2 (08:52→22:40)
[2017-08-06] MEDS: POTASSIUM CHLORIDE (SR) 20 MEQ TAB PO (09:54)
[2017-08-07] MEDS: ACETAMINOPHEN 325 MG TAB PO (02:01)
[2017-08-07 05:15] LABS: ADD MAN DIFF? NO
[2017-08-07 05:23] LABS: WHITE BLOOD COUNT 10.6 10^3/ul (4.8-10.8)
[2017-08-07 05:23] LABS: ABNORMAL IP MESSAGE 1; BASOPHIL # 0.1 10^3/ul (0.0-0.1); BASOPHILS % 0.7 % (0.0-2.0); EOSINOPHILS # 0.3 10^3/ul (0.0-0.5); EOSINOPHILS % 3.1 % (0.0-7.0); HEMATOCRIT 23.9 % (37.0-47.0); HEMOGLOBIN 8.5 g/dl (12.0-16.0); LYMPHOCYTES # 1.8 10^3/ul (0.8-2.9); MEAN CORPUSCULAR HEMOGLOBIN 30.1 pg (29.0-33.0); MEAN CORPUSCULAR HGB CONC 35.6 g/dl (32.0-37.0); MEAN CORPUSCULAR VOLUME 84.8 fl (82.0-101.0); MEAN PLATELET VOLUME 10.5 fl (7.4-10.4); MONOCYTE # 1.8 10^3/ul (0.3-0.9); MONOCYTES % 17.1 % (0.0-11.0); NEUTROPHIL # 6.5 10^3/ul (1.6-7.5); PLATELET COUNT 464 10^3/UL (140-415); RED BLOOD COUNT 2.82 10^6/ul (4.20-5.40); RED CELL DISTRIBUTION WIDTH 14.6 % (11.5-14.5)
[2017-08-07 05:40] LABS: POSITIVE DIFF @See below
[2017-08-07] MEDS: LEVOTHYROXINE 50 MCG TAB PO (06:00)
[2017-08-07] MEDS: metroNIDAZOLE 500 MG/NS (PMX) 100 ML IVPB ×2 (06:00→13:14)
[2017-08-07] MEDS: HEPARIN 5,000 UNIT/0.5 ML VIAL SC ×2 (06:01→13:14)
[2017-08-07 06:10] LABS: ANION GAP 11 (8-16); BLOOD UREA NITROGEN 8 mg/dl (7-20); CALCIUM 8.4 mg/dl (8.4-10.2); CARBON DIOXIDE 29 mmol/L (21-31); CHLORIDE 98 mmol/L (97-110); CREATININE 0.74 mg/dl (0.44-1.00); GLUCOSE 96 mg/dl (70-220); MAGNESIUM 1.7 mg/dl (1.7-2.5); PHOSPHORUS 3.1 mg/dl (2.5-4.9); POTASSIUM 3.3 mmol/L (3.5-5.1); SODIUM 135 mmol/L (135-144)
[2017-08-07] MEDS: DOCUSATE SODIUM 100 MG CAP PO (09:14)
[2017-08-07] MEDS: CALCIUM CARBONATE 500 MG CHEW TAB PO (09:14)
[2017-08-07] MEDS: FISH OIL 1,000 MG CAP PO (09:14)
[2017-08-07] MEDS: POLYETHYLENE GLYCOL 17 GM PACKET PO (09:14)
[2017-08-07] MEDS: BRIMONIDINE 0.1% 5 ML OPH BOTH EYES (09:15)
[2017-08-07] MEDS: ASPIRIN 81 MG TAB PO (09:15)
[2017-08-07] MEDS: CEFEPIME 1GM/50 ML (PMX) 50 ML IVPB (09:15)
[2017-08-07] MEDS: NIFEdipine (XL) 60 MG TAB PO (09:15)
[2017-08-07] MEDS: COLESEVELAM 625 MG TAB PO (09:15)
[2017-08-07] MEDS: ALBUTEROL/IPRATROPIUM (NEB) 3 ML AMP HHN (09:59)
[2017-08-07] MEDS: DOXYCYCLINE 100 MG in DEXTROSE 5% 250 ML IVPB (10:18)
[2017-08-07] MEDS: POTASSIUM CHLORIDE (SR) 20 MEQ TAB PO (10:19)
== END 2017-08-07 17:15 | disposition home or self-care (01) | DRG 871 ==
LOC: E/R 10:10 → PP2 14:23
DX: A41.9 Sepsis, unspecified organism (principal); J18.9 Pneumonia, unspecified organism; J96.91 Respiratory failure, unspecified with hypoxia; N17.9 Acute kidney failure, unspecified; E87.2 Acidosis; I11.0 Hypertensive heart disease with heart failure; K52.1 Toxic gastroenteritis and colitis; J84.10 Pulmonary fibrosis, unspecified; I50.9 Heart failure, unspecified; N39.0 Urinary tract infection, site not specified; E87.1 Hypo-osmolality and hyponatremia; D64.9 Anemia, unspecified; R65.20 Severe sepsis without septic shock; E03.9 Hypothyroidism, unspecified; N25.0 Renal osteodystrophy; E78.5 Hyperlipidemia, unspecified; T36.95XA Adverse effect of unspecified systemic antibiotic, initial encounter; Y92.239 Unspecified place in hospital as the place of occurrence of the external cause
CPT/HCPCS: 71010; 71250; 76775; 80048; 80053; 80061; 81001; 81003; 82043; 82550; 82553; 83036; 83605; 83735; 83880; 84100; 84155; 84300; 84439; 84443; 84484; 85025; 85610; 85730; 87040; 87045; 87075; 87081; 87086; 87177; 87205; 87400; 93005; 93306; 94640; 94664; 99291-25

== ENCOUNTER 2019-01-11 19:18 | Inpatient (IN) | payer OTHER ==
[2019-01-11] MEDS: ALBUTEROL 0.5% (NEB) 2.5 MG/0.5 ML AMP INH (20:03)
[2019-01-11 20:04] LABS: ADD MAN DIFF? NO
[2019-01-11 20:08] LABS: WHITE BLOOD COUNT 22.4 10^3/ul (4.8-10.8)
[2019-01-11 20:08] LABS: BASOPHIL # 0.1 10^3/ul (0.0-0.1); BASOPHILS % 0.4 % (0.0-2.0); EOSINOPHILS # 0.1 10^3/ul (0.0-0.5); EOSINOPHILS % 0.2 % (0.0-7.0); HEMATOCRIT 37.3 % (37.0-47.0); HEMOGLOBIN 12.4 g/dl (12.0-16.0); LYMPHOCYTES # 1.7 10^3/ul (0.8-2.9); LYMPHOCYTES % 7.8 % (15.0-51.0); MEAN CORPUSCULAR HEMOGLOBIN 29.5 pg (29.0-33.0); MEAN CORPUSCULAR HGB CONC 33.2 g/dl (32.0-37.0); MEAN CORPUSCULAR VOLUME 88.8 fl (82.0-101.0); MEAN PLATELET VOLUME 9.2 fl (7.4-10.4); MONOCYTE # 0.8 10^3/ul (0.3-0.9); MONOCYTES % 3.5 % (0.0-11.0); NEUTROPHIL # 19.5 10^3/ul (1.6-7.5); PLATELET COUNT 303 10^3/UL (140-415); RED CELL DISTRIBUTION WIDTH 12.7 % (11.5-14.5)
[2019-01-11] MEDS: METHYLPREDNISOLONE 125 MG INJ IV (20:17)
[2019-01-11 20:25] LABS: ANION GAP 10 (5-13); BLOOD UREA NITROGEN 18 mg/dl (7-20); CALCIUM 9.3 mg/dl (8.4-10.2); CARBON DIOXIDE 28 mmol/L (21-31); CHLORIDE 95 mmol/L (97-110); CREATININE 0.81 mg/dl (0.44-1.00); GLUCOSE 114 mg/dl (70-220); SODIUM 133 mmol/L (135-144)
[2019-01-11 20:38] LABS: TROPONIN-I < 0.012 ng/ml (0.000-0.120)
[2019-01-11] MEDS: CEFTRIAXONE 1 GM/50 ML (PMX) 50 ML IVPB (23:09)
[2019-01-11] MEDS: VANCOMYCIN 1 GM (PMX) 250 ML IVPB (23:25)
[2019-01-12] MEDS ORDERED: MAGNESIUM HYDROXIDE 30ML CUP PO (02:00)
[2019-01-12] MEDS ORDERED: ACETAMINOPHEN 325 MG TAB PO ×2 (02:00)
[2019-01-12] MEDS ORDERED: HYDROCODONE/APAP (5/325) TAB PO (02:00)
[2019-01-12] MEDS ORDERED: hydrALAzine 20 MG INJ IV (02:00)
[2019-01-12] MEDS ORDERED: NACL 0.9% 3 ML SYG IV (02:00)
[2019-01-12] MEDS ORDERED: LORAZEPAM 2 MG INJ IV (02:00)
[2019-01-12] MEDS ORDERED: NITROGLYCERIN (SL) 0.4 MG TAB SL (02:00)
[2019-01-12] MEDS ORDERED: morphine 2 MG INJ IV (02:00)
[2019-01-12] MEDS ORDERED: DOCUSATE SODIUM 100 MG CAP PO (02:00)
[2019-01-12] MEDS ORDERED: ONDANSETRON 4 MG INJ IV ×2 (02:00)
[2019-01-12] MEDS: SOD CHLORIDE 0.45% 1,000 ML IV ×3 (03:06→16:35)
[2019-01-12 03:43] LABS: FREE T4 (FREE THYROXINE) 1.34 ng/dl (0.85-1.93)
[2019-01-12] MEDS: ALBUTEROL/IPRATROPIUM (NEB) 3 ML AMP HHN ×5 (05:22→20:43)
[2019-01-12] MEDS: LEVOTHYROXINE 50 MCG TAB PO (06:11)
[2019-01-12] MEDS: PANTOPRAZOLE (EC) 40 MG TAB PO (06:11)
[2019-01-12] MEDS: METHYLPREDNISOLONE 125 MG INJ IV ×3 (06:11→21:03)
[2019-01-12] MEDS: AZTREONAM 1 GM/NS (PMX) 50 ML IVPB ×2 (08:16→21:02)
[2019-01-12] MEDS: CALCIUM CARBONATE 1.25 GM TAB PO ×2 (08:16→21:03)
[2019-01-12] MEDS: HEPARIN 5,000 UNIT/1 ML VIAL SC ×2 (08:17→21:15)
[2019-01-12] MEDS: ASPIRIN 81 MG TAB PO (08:17)
[2019-01-12] MEDS ORDERED: NON-FORMULARY/PATIENT OWN MED (Omeprazole* 20 MG) PO (09:00)
[2019-01-12] MEDS ORDERED: CYCLOSPORINE BOTH EARS (09:00)
[2019-01-12] MEDS: BRIMONIDINE 0.15% 5 ML OPH BOTH EYES ×2 (12:13→21:02)
[2019-01-12] MEDS: OLOPATADINE 0.1% 5 ML OPH BOTH EYES ×2 (13:02→21:01)
[2019-01-12] MEDS: FLUTICASONE 0.05% 16 GM NAS SPRAY NASAL (21:02)
[2019-01-13] MEDS: ALBUTEROL/IPRATROPIUM (NEB) 3 ML AMP HHN ×6 (01:49→20:58)
[2019-01-13 05:16] LABS: ADD MAN DIFF? NO
[2019-01-13 05:22] LABS: ABNORMAL IP MESSAGE 1; BASOPHIL # 0.1 10^3/ul (0.0-0.1); BASOPHILS % 0.3 % (0.0-2.0); HEMATOCRIT 30.5 % (37.0-47.0); HEMOGLOBIN 10.1 g/dl (12.0-16.0); LYMPHOCYTES # 0.7 10^3/ul (0.8-2.9); LYMPHOCYTES % 2.9 % (15.0-51.0); MEAN CORPUSCULAR HEMOGLOBIN 29.3 pg (29.0-33.0); MEAN CORPUSCULAR HGB CONC 33.1 g/dl (32.0-37.0); MEAN CORPUSCULAR VOLUME 88.4 fl (82.0-101.0); MEAN PLATELET VOLUME 9.8 fl (7.4-10.4); MONOCYTE # 0.5 10^3/ul (0.3-0.9); MONOCYTES % 2.2 % (0.0-11.0); NEUTROPHIL # 21.1 10^3/ul (1.6-7.5); NEUTROPHILS % 91.9 % (39.0-77.0); PLATELET COUNT 279 10^3/UL (140-415); RED BLOOD COUNT 3.45 10^6/ul (4.20-5.40)
[2019-01-13 05:22] LABS: WHITE BLOOD COUNT 22.9 10^3/ul (4.8-10.8)
[2019-01-13 05:28] LABS: POSITIVE DIFF @See below
[2019-01-13 05:46] LABS: ANION GAP 6 (5-13); BLOOD UREA NITROGEN 18 mg/dl (7-20); CALCIUM 8.9 mg/dl (8.4-10.2); CARBON DIOXIDE 29 mmol/L (21-31); CHLORIDE 96 mmol/L (97-110); CREATININE 0.72 mg/dl (0.44-1.00); GLUCOSE 154 mg/dl (70-220); MAGNESIUM 2.1 mg/dl (1.7-2.5); PHOSPHORUS 3.3 mg/dl (2.5-4.9); POTASSIUM 3.9 mmol/L (3.5-5.1); SODIUM 131 mmol/L (135-144)
[2019-01-13 05:49] LABS: HDL CHOLESTEROL 73 mg/dl (33-92); LDL CHOLESTEROL,CALCULATED 66 mg/dl; TRIGLYCERIDES 66 mg/dl (0-149)
[2019-01-13 05:49] LABS: CHOLESTEROL 152 mg/dl (100-200)
[2019-01-13 06:12] LABS: HEMOGLOBIN A1C 5.7 % (0-5.9)
[2019-01-13 06:14] LABS: THYROID STIMULATING HORMONE 0.341 MIU/L (0.465-4.680)
[2019-01-13] MEDS: PANTOPRAZOLE (EC) 40 MG TAB PO (06:15)
[2019-01-13] MEDS: LEVOTHYROXINE 50 MCG TAB PO (06:15)
[2019-01-13] MEDS: SOD CHLORIDE 0.45% 1,000 ML IV (06:16)
[2019-01-13] MEDS: METHYLPREDNISOLONE 125 MG INJ IV ×3 (06:16→21:22)
[2019-01-13] MEDS: CALCIUM CARBONATE 1.25 GM TAB PO ×2 (08:03→21:22)
[2019-01-13] MEDS: ASPIRIN 81 MG TAB PO (08:03)
[2019-01-13] MEDS: FLUTICASONE 0.05% 16 GM NAS SPRAY NASAL ×2 (08:03→21:22)
[2019-01-13] MEDS: HEPARIN 5,000 UNIT/1 ML VIAL SC ×2 (08:03→21:30)
[2019-01-13] MEDS: BRIMONIDINE 0.15% 5 ML OPH BOTH EYES ×2 (08:03→21:21)
[2019-01-13] MEDS: OLOPATADINE 0.1% 5 ML OPH BOTH EYES ×2 (08:03→21:21)
[2019-01-13 09:42] LABS: CREATINE KINASE < 20 IU/L (23-200)
[2019-01-13 10:03] LABS: CK-MB 1.38 ng/ml (0.0-2.4); TROPONIN-I < 0.012 ng/ml (0.000-0.120)
[2019-01-13] MEDS: AZTREONAM 1 GM/NS (PMX) 50 ML IVPB ×2 (10:30→21:19)
[2019-01-13] MEDS: DOCUSATE SODIUM 100 MG CAP PO ×2 (10:30→21:22)
[2019-01-13] MEDS: FUROSEMIDE 20 MG INJ IV (10:31)
[2019-01-13 12:01] LABS: CREATINE KINASE 22 IU/L (23-200)
[2019-01-13 12:14] LABS: CK INDEX 7.5; CK-MB 1.65 ng/ml (0.0-2.4); TROPONIN-I < 0.012 ng/ml (0.000-0.120)
[2019-01-13 14:57] LABS: B-TYPE NATRIURETIC PEPTIDE 2270 PG/ML (0-450)
[2019-01-13] MEDS: METOPROLOL 25 MG TAB PO (21:23)
[2019-01-14] MEDS: ALBUTEROL/IPRATROPIUM (NEB) 3 ML AMP HHN ×6 (01:54→21:00)
[2019-01-14 05:50] LABS: ADD MAN DIFF? NO
[2019-01-14 05:53] LABS: WHITE BLOOD COUNT 19.5 10^3/ul (4.8-10.8)
[2019-01-14 05:53] LABS: BASOPHIL # 0.1 10^3/ul (0.0-0.1); BASOPHILS % 0.4 % (0.0-2.0); HEMATOCRIT 33.2 % (37.0-47.0); HEMOGLOBIN 10.9 g/dl (12.0-16.0); LYMPHOCYTES # 0.8 10^3/ul (0.8-2.9); LYMPHOCYTES % 4.2 % (15.0-51.0); MEAN CORPUSCULAR HEMOGLOBIN 29.5 pg (29.0-33.0); MEAN CORPUSCULAR HGB CONC 32.8 g/dl (32.0-37.0); MEAN CORPUSCULAR VOLUME 89.7 fl (82.0-101.0); MEAN PLATELET VOLUME 9.8 fl (7.4-10.4); MONOCYTE # 0.6 10^3/ul (0.3-0.9); MONOCYTES % 3.2 % (0.0-11.0); NEUTROPHIL # 17.6 10^3/ul (1.6-7.5); NEUTROPHILS % 90.1 % (39.0-77.0); PLATELET COUNT 309 10^3/UL (140-415); RED CELL DISTRIBUTION WIDTH 12.8 % (11.5-14.5)
[2019-01-14 06:05] LABS: ANION GAP 3 (5-13); BLOOD UREA NITROGEN 19 mg/dl (7-20); CALCIUM 9.2 mg/dl (8.4-10.2); CARBON DIOXIDE 36 mmol/L (21-31); CHLORIDE 94 mmol/L (97-110); CREATININE 0.76 mg/dl (0.44-1.00); GLUCOSE 139 mg/dl (70-220); SODIUM 133 mmol/L (135-144)
[2019-01-14] MEDS: PANTOPRAZOLE (EC) 40 MG TAB PO (06:43)
[2019-01-14] MEDS: LEVOTHYROXINE 25 MCG TAB PO (06:43)
[2019-01-14] MEDS: METHYLPREDNISOLONE 125 MG INJ IV (06:43)
[2019-01-14] MEDS: DOCUSATE SODIUM 100 MG CAP PO ×2 (08:39→21:20)
[2019-01-14] MEDS: ASPIRIN 81 MG TAB PO (08:39)
[2019-01-14] MEDS: FLUTICASONE 0.05% 16 GM NAS SPRAY NASAL ×2 (08:39→21:20)
[2019-01-14] MEDS: CALCIUM CARBONATE 1.25 GM TAB PO ×2 (08:39→21:20)
[2019-01-14] MEDS: BRIMONIDINE 0.15% 5 ML OPH BOTH EYES ×2 (08:40→21:21)
[2019-01-14] MEDS: OLOPATADINE 0.1% 5 ML OPH BOTH EYES ×2 (08:40→21:20)
[2019-01-14] MEDS: METOPROLOL 25 MG TAB PO ×2 (08:41→21:26)
[2019-01-14] MEDS: AZTREONAM 1 GM/NS (PMX) 50 ML IVPB ×2 (08:45→21:25)
[2019-01-14] MEDS: HEPARIN 5,000 UNIT/1 ML VIAL SC ×2 (09:02→21:42)
[2019-01-14] MEDS: FUROSEMIDE 20 MG INJ IV (10:51)
[2019-01-15] MEDS: ALBUTEROL/IPRATROPIUM (NEB) 3 ML AMP HHN ×6 (00:16→20:51)
[2019-01-15 05:55] LABS: ADD MAN DIFF? NO
[2019-01-15 05:58] LABS: ABNORMAL IP MESSAGE 1; BASOPHILS % 0.3 % (0.0-2.0); EOSINOPHILS % 0.2 % (0.0-7.0); HEMATOCRIT 38.6 % (37.0-47.0); HEMOGLOBIN 12.5 g/dl (12.0-16.0); LYMPHOCYTES # 2.8 10^3/ul (0.8-2.9); LYMPHOCYTES % 23.4 % (15.0-51.0); MEAN CORPUSCULAR HEMOGLOBIN 28.9 pg (29.0-33.0); MEAN CORPUSCULAR HGB CONC 32.4 g/dl (32.0-37.0); MEAN CORPUSCULAR VOLUME 89.4 fl (82.0-101.0); MEAN PLATELET VOLUME 10.1 fl (7.4-10.4); MONOCYTE # 1.6 10^3/ul (0.3-0.9); MONOCYTES % 13.5 % (0.0-11.0); NEUTROPHIL # 7.2 10^3/ul (1.6-7.5); NEUTROPHILS % 61.1 % (39.0-77.0); PLATELET COUNT 351 10^3/UL (140-415); RED BLOOD COUNT 4.32 10^6/ul (4.20-5.40)
[2019-01-15 05:58] LABS: WHITE BLOOD COUNT 11.8 10^3/ul (4.8-10.8)
[2019-01-15] MEDS: LEVOTHYROXINE 25 MCG TAB PO (06:13)
[2019-01-15] MEDS: PANTOPRAZOLE (EC) 40 MG TAB PO (06:13)
[2019-01-15 06:23] LABS: POSITIVE DIFF @See below
[2019-01-15 06:30] LABS: ANION GAP 8 (5-13); BLOOD UREA NITROGEN 22 mg/dl (7-20); CALCIUM 8.9 mg/dl (8.4-10.2); CARBON DIOXIDE 39 mmol/L (21-31); CHLORIDE 91 mmol/L (97-110); GLUCOSE 81 mg/dl (70-220); POTASSIUM 3.9 mmol/L (3.5-5.1); SODIUM 138 mmol/L (135-144)
[2019-01-15] MEDS: FLUTICASONE 0.05% 16 GM NAS SPRAY NASAL ×2 (09:15→21:06)
[2019-01-15] MEDS: OLOPATADINE 0.1% 5 ML OPH BOTH EYES ×2 (09:15→21:08)
[2019-01-15] MEDS: AZTREONAM 1 GM/NS (PMX) 50 ML IVPB ×2 (09:15→21:08)
[2019-01-15] MEDS: BRIMONIDINE 0.15% 5 ML OPH BOTH EYES ×2 (09:15→21:07)
[2019-01-15] MEDS: CALCIUM CARBONATE 1.25 GM TAB PO ×2 (09:16→21:07)
[2019-01-15] MEDS: DOCUSATE SODIUM 100 MG CAP PO ×2 (09:16→21:07)
[2019-01-15] MEDS: predniSONE 10 MG TAB PO (09:16)
[2019-01-15] MEDS: HEPARIN 5,000 UNIT/1 ML VIAL SC ×2 (09:16→21:21)
[2019-01-15] MEDS: ASPIRIN 81 MG TAB PO (09:16)
[2019-01-15] MEDS: METOPROLOL 25 MG TAB PO ×2 (09:17→21:07)
[2019-01-15 23:29] LABS: ADD UMIC NO; UR ASCORBIC ACID 20 mg/dL (NEGATIVE); UR BILIRUBIN (Dip) NEGATIVE (NEGATIVE); UR BLOOD (Dip) NEGATIVE (NEGATIVE); UR CLARITY CLEAR (CLEAR); UR COLOR YELLOW (YELLOW); UR GLUCOSE (Dip) NEGATIVE (NEGATIVE); UR KETONES (Dip) NEGATIVE (NEGATIVE); UR LEUKOCYTE ESTERASE (Dip) NEGATIVE Leu/ul (NEGATIVE); UR NITRITE (Dip) NEGATIVE (NEGATIVE); UR SPECIFIC GRAVITY (Dip) 1.016 (1.003-1.030); UR TOTAL PROTEIN (Dip) NEGATIVE (NEGATIVE); UR UROBILINOGEN (Dip) NEGATIVE (NEGATIVE)
[2019-01-16] MEDS: ALBUTEROL/IPRATROPIUM (NEB) 3 ML AMP HHN ×6 (01:27→20:15)
[2019-01-16] MEDS: LEVOTHYROXINE 25 MCG TAB PO (06:22)
[2019-01-16] MEDS: PANTOPRAZOLE (EC) 40 MG TAB PO (06:22)
[2019-01-16 07:40] LABS: ADD MAN DIFF? NO
[2019-01-16 07:56] LABS: WHITE BLOOD COUNT 11.1 10^3/ul (4.8-10.8)
[2019-01-16 07:56] LABS: BASOPHIL # 0.1 10^3/ul (0.0-0.1); BASOPHILS % 0.9 % (0.0-2.0); EOSINOPHILS # 0.5 10^3/ul (0.0-0.5); EOSINOPHILS % 4.9 % (0.0-7.0); HEMATOCRIT 37.4 % (37.0-47.0); HEMOGLOBIN 11.9 g/dl (12.0-16.0); LYMPHOCYTES # 4.2 10^3/ul (0.8-2.9); MEAN CORPUSCULAR HGB CONC 31.8 g/dl (32.0-37.0); MEAN PLATELET VOLUME 9.9 fl (7.4-10.4); MONOCYTE # 1.3 10^3/ul (0.3-0.9); MONOCYTES % 11.8 % (0.0-11.0); NEUTROPHIL # 4.5 10^3/ul (1.6-7.5); NEUTROPHILS % 40.8 % (39.0-77.0); PLATELET COUNT 340 10^3/UL (140-415); RED BLOOD COUNT 4.11 10^6/ul (4.20-5.40); RED CELL DISTRIBUTION WIDTH 12.9 % (11.5-14.5)
[2019-01-16 08:19] LABS: BLOOD UREA NITROGEN 21 mg/dl (7-20); CHLORIDE 89 mmol/L (97-110); GLUCOSE 82 mg/dl (70-220); POTASSIUM 4.1 mmol/L (3.5-5.1); SODIUM 132 mmol/L (135-144)
[2019-01-16 08:28] LABS: CARBON DIOXIDE 42 mmol/L (21-31)
[2019-01-16 08:29] LABS: ANION GAP 1 (5-13)
[2019-01-16] MEDS: OLOPATADINE 0.1% 5 ML OPH BOTH EYES ×2 (09:16→21:36)
[2019-01-16] MEDS: BRIMONIDINE 0.15% 5 ML OPH BOTH EYES ×2 (09:16→21:37)
[2019-01-16] MEDS: DOCUSATE SODIUM 100 MG CAP PO ×2 (09:16→21:36)
[2019-01-16] MEDS: AZTREONAM 1 GM/NS (PMX) 50 ML IVPB ×2 (09:16→21:35)
[2019-01-16] MEDS: FLUTICASONE 0.05% 16 GM NAS SPRAY NASAL ×2 (09:16→21:36)
[2019-01-16] MEDS: ASPIRIN 81 MG TAB PO (09:16)
[2019-01-16] MEDS: predniSONE 10 MG TAB PO (09:17)
[2019-01-16] MEDS: CALCIUM CARBONATE 1.25 GM TAB PO ×2 (09:17→21:36)
[2019-01-16] MEDS: METOPROLOL 25 MG TAB PO ×2 (09:17→21:38)
[2019-01-16] MEDS: HEPARIN 5,000 UNIT/1 ML VIAL SC ×2 (09:19→21:42)
[2019-01-16 14:07] LABS: AADO2 Arterial 18.7 mmHg (7.0-24.0); Arterial Base Excess 12.1 mmol/L (-3.0-3); Arterial Blood Gas Oxygen Sat 91.9 mmHG (95.0-100.0); Arterial COHb 0.5 % (0.0-3.0); Arterial Fraction of Oxyhgb 91.2 % (93.0-99.0); Arterial HCO3 38.8 mmol/L (22.0-26.0); Arterial MetHb 0.3 % (0.0-1.5); Arterial pCO2 59.8 mmhg (35-45); MODE ROOM AIR; Site Right Brachial
[2019-01-17] MEDS: ALBUTEROL/IPRATROPIUM (NEB) 3 ML AMP HHN ×4 (00:56→12:24)
[2019-01-17 05:44] LABS: ABNORMAL IP MESSAGE 1; HEMOGLOBIN 11.7 g/dl (12.0-16.0); MEAN CORPUSCULAR HEMOGLOBIN 29.3 pg (29.0-33.0); MEAN CORPUSCULAR HGB CONC 32.5 g/dl (32.0-37.0); MEAN PLATELET VOLUME 9.9 fl (7.4-10.4); PLATELET COUNT 349 10^3/UL (140-415); RED CELL DISTRIBUTION WIDTH 12.7 % (11.5-14.5)
[2019-01-17 05:44] LABS: WHITE BLOOD COUNT 13.8 10^3/ul (4.8-10.8)
[2019-01-17 05:50] LABS: ADD MAN DIFF? YES; POSITIVE DIFF @See below
[2019-01-17 06:07] LABS: ANION GAP 3 (5-13); BLOOD UREA NITROGEN 26 mg/dl (7-20); CALCIUM 9.2 mg/dl (8.4-10.2); CARBON DIOXIDE 37 mmol/L (21-31); CHLORIDE 90 mmol/L (97-110); CREATININE 0.61 mg/dl (0.44-1.00); GLUCOSE 94 mg/dl (70-220); POTASSIUM 4.3 mmol/L (3.5-5.1); SODIUM 130 mmol/L (135-144)
[2019-01-17] MEDS: LEVOTHYROXINE 25 MCG TAB PO (06:09)
[2019-01-17] MEDS: PANTOPRAZOLE (EC) 40 MG TAB PO (06:10)
[2019-01-17 07:07] LABS: BAND NEUTROPHILS #M 0.4 10^3/ul (0.0-0.6); BAND NEUTROPHILS % (M) 3 % (0-4); EOSINOPHILS % (M) 5 % (0-7); LYMPHOCYTES #M 2.8 10^3/ul (0.8-2.9); LYMPHOCYTES % (M) 21 % (15-51); METAMYELOCYTES #M 0.1 10^3/ul (0.0-0.0); METAMYELOCYTES %M 1 % (0-0); MONOCYTE #M 1.3 10^3/ul (0.3-0.9); MONOCYTES % (M) 10 % (0-11); MYELOCYTES #M 0.1 10^3/ul (0.0-0.0); MYELOCYTES % (M) 1 % (0-0); PLATELET ESTIMATE NORMAL; REACTIVE LYMPHOCYTES #M 0.1 10^3/ul (0.0-0.0); REACTIVE LYMPHOCYTES% (M) 1 % (0-0); SEG NEUT #M 8.1 10^3/ul (1.6-7.5); SEGMENTED NEUTROPHILS (M) % 58 % (39-77); SMUDGE%M 26 % (0-0)
[2019-01-17] MEDS: CALCIUM CARBONATE 1.25 GM TAB PO ×2 (08:18→20:22)
[2019-01-17] MEDS: predniSONE 10 MG TAB PO (08:18)
[2019-01-17] MEDS: ASPIRIN 81 MG TAB PO (08:18)
[2019-01-17] MEDS: DOCUSATE SODIUM 100 MG CAP PO ×2 (08:18→20:23)
[2019-01-17] MEDS: AZTREONAM 1 GM/NS (PMX) 50 ML IVPB (08:20)
[2019-01-17] MEDS: HEPARIN 5,000 UNIT/1 ML VIAL SC ×2 (08:27→20:27)
[2019-01-17] MEDS: METOPROLOL 25 MG TAB PO ×2 (08:28→20:24)
[2019-01-17] MEDS: BRIMONIDINE 0.15% 5 ML OPH BOTH EYES ×2 (08:29→20:22)
[2019-01-17] MEDS: OLOPATADINE 0.1% 5 ML OPH BOTH EYES ×2 (08:29→20:22)
[2019-01-17] MEDS: FLUTICASONE 0.05% 16 GM NAS SPRAY NASAL ×2 (08:30→20:22)
[2019-01-17] MEDS: LEVALBUTEROL (NEB) 0.31 MG/3 ML AMP HHN ×2 (16:51→19:59)
[2019-01-18] MEDS: LEVALBUTEROL (NEB) 0.31 MG/3 ML AMP HHN ×4 (03:08→21:15)
[2019-01-18] MEDS: PANTOPRAZOLE (EC) 40 MG TAB PO (06:20)
[2019-01-18] MEDS: LEVOTHYROXINE 25 MCG TAB PO (06:20)
[2019-01-18 07:43] LABS: WHITE BLOOD COUNT 14.5 10^3/ul (4.8-10.8)
[2019-01-18 07:43] LABS: ABNORMAL IP MESSAGE 1; HEMOGLOBIN 13.1 g/dl (12.0-16.0); MEAN CORPUSCULAR HEMOGLOBIN 29.1 pg (29.0-33.0); MEAN CORPUSCULAR HGB CONC 32.8 g/dl (32.0-37.0); MEAN CORPUSCULAR VOLUME 88.9 fl (82.0-101.0); MEAN PLATELET VOLUME 9.9 fl (7.4-10.4); PLATELET COUNT 374 10^3/UL (140-415); RED CELL DISTRIBUTION WIDTH 13.1 % (11.5-14.5)
[2019-01-18 07:48] LABS: ADD MAN DIFF? YES; POSITIVE DIFF @See below
[2019-01-18 08:04] LABS: ANION GAP 5 (5-13); BLOOD UREA NITROGEN 30 mg/dl (7-20); CARBON DIOXIDE 37 mmol/L (21-31); CHLORIDE 89 mmol/L (97-110); CREATININE 0.65 mg/dl (0.44-1.00); GLUCOSE 83 mg/dl (70-220); POTASSIUM 4.3 mmol/L (3.5-5.1); SODIUM 131 mmol/L (135-144)
[2019-01-18] MEDS: OLOPATADINE 0.1% 5 ML OPH BOTH EYES ×2 (09:15→20:15)
[2019-01-18] MEDS: FLUTICASONE 0.05% 16 GM NAS SPRAY NASAL ×2 (09:15→20:15)
[2019-01-18] MEDS: predniSONE 10 MG TAB PO (09:16)
[2019-01-18] MEDS: BRIMONIDINE 0.15% 5 ML OPH BOTH EYES ×2 (09:16→20:15)
[2019-01-18] MEDS: CALCIUM CARBONATE 1.25 GM TAB PO (09:16)
[2019-01-18] MEDS: ASPIRIN 81 MG TAB PO (09:16)
[2019-01-18] MEDS: DOCUSATE SODIUM 100 MG CAP PO (09:16)
[2019-01-18] MEDS: METOPROLOL 25 MG TAB PO ×2 (09:17→20:16)
[2019-01-18] MEDS: HEPARIN 5,000 UNIT/1 ML VIAL SC ×2 (09:20→20:19)
[2019-01-18 11:08] LABS: ANISOCYTOSIS 1+ (0-0); BAND NEUTROPHILS #M 0.1 10^3/ul (0.0-0.6); BAND NEUTROPHILS % (M) 1 % (0-4); EOSINOPHILS % (M) 4 % (0-7); LYMPHOCYTES #M 5.2 10^3/ul (0.8-2.9); LYMPHOCYTES % (M) 36 % (15-51); MONOCYTE #M 0.8 10^3/ul (0.3-0.9); MONOCYTES % (M) 6 % (0-11); MYELOCYTES #M 0.2 10^3/ul (0.0-0.0); MYELOCYTES % (M) 2 % (0-0); OVALOCYTES 1+ (0-0); PLATELET ESTIMATE NORMAL; POIKILOCYTOSIS 1+ (0-0); PROMYELOCYTES #M 0.1 10^3/ul (0-0); PROMYELOCYTES % (M) 1 % (0-0); REACTIVE LYMPHOCYTES #M 0.4 10^3/ul (0.0-0.0); REACTIVE LYMPHOCYTES% (M) 3 % (0-0); SEG NEUT #M 6.8 10^3/ul (1.6-7.5); SEGMENTED NEUTROPHILS (M) % 47 % (39-77); SMUDGE%M 36 % (0-0)
[2019-01-19] MEDS: LEVALBUTEROL (NEB) 0.31 MG/3 ML AMP HHN ×4 (01:43→19:53)
[2019-01-19 07:07] LABS: ABNORMAL IP MESSAGE 1; HEMATOCRIT 37.9 % (37.0-47.0); HEMOGLOBIN 12.3 g/dl (12.0-16.0); MEAN CORPUSCULAR HEMOGLOBIN 29.1 pg (29.0-33.0); MEAN CORPUSCULAR HGB CONC 32.5 g/dl (32.0-37.0); MEAN CORPUSCULAR VOLUME 89.6 fl (82.0-101.0); MEAN PLATELET VOLUME 10.8 fl (7.4-10.4); PLATELET COUNT 357 10^3/UL (140-415); RED BLOOD COUNT 4.23 10^6/ul (4.20-5.40); RED CELL DISTRIBUTION WIDTH 13.2 % (11.5-14.5)
[2019-01-19 07:07] LABS: WHITE BLOOD COUNT 14.3 10^3/ul (4.8-10.8)
[2019-01-19 07:15] LABS: POSITIVE DIFF @See below
[2019-01-19 07:16] LABS: ADD MAN DIFF? YES
[2019-01-19 07:34] LABS: ANION GAP 4 (5-13); BLOOD UREA NITROGEN 31 mg/dl (7-20); CALCIUM 9.1 mg/dl (8.4-10.2); CARBON DIOXIDE 39 mmol/L (21-31); CHLORIDE 89 mmol/L (97-110); CREATININE 0.67 mg/dl (0.44-1.00); GLUCOSE 78 mg/dl (70-220); POTASSIUM 4.5 mmol/L (3.5-5.1); SODIUM 132 mmol/L (135-144)
[2019-01-19] MEDS: LEVOTHYROXINE 25 MCG TAB PO (07:35)
[2019-01-19] MEDS: predniSONE 10 MG TAB PO (08:10)
[2019-01-19] MEDS: ASPIRIN 81 MG TAB PO (08:10)
[2019-01-19] MEDS: BRIMONIDINE 0.15% 5 ML OPH BOTH EYES ×2 (08:11→21:20)
[2019-01-19] MEDS: OLOPATADINE 0.1% 5 ML OPH BOTH EYES ×2 (08:11→21:20)
[2019-01-19] MEDS: FLUTICASONE 0.05% 16 GM NAS SPRAY NASAL ×2 (08:11→21:19)
[2019-01-19] MEDS: METOPROLOL 25 MG TAB PO ×2 (08:14→21:20)
[2019-01-19] MEDS: HEPARIN 5,000 UNIT/1 ML VIAL SC ×2 (08:21→21:21)
[2019-01-19 10:36] LABS: ANISOCYTOSIS 1+ (0-0); BAND NEUTROPHILS #M 0.2 10^3/ul (0.0-0.6); BAND NEUTROPHILS % (M) 2 % (0-4); BURR CELLS 1+ (0-0); EOSINOPHILS % (M) 4 % (0-7); LYMPHOCYTES #M 3.8 10^3/ul (0.8-2.9); LYMPHOCYTES % (M) 27 % (15-51); METAMYELOCYTES #M 0.5 10^3/ul (0.0-0.0); METAMYELOCYTES %M 4 % (0-0); MONOCYTE #M 1.2 10^3/ul (0.3-0.9); MONOCYTES % (M) 9 % (0-11); MYELOCYTES #M 0.5 10^3/ul (0.0-0.0); MYELOCYTES % (M) 4 % (0-0); OVALOCYTES 1+ (0-0); PLATELET ESTIMATE NORMAL; POIKILOCYTOSIS 1+ (0-0); POLYCHROMASIA 1+ (0-0); PROMYELOCYTES #M 0.1 10^3/ul (0-0); PROMYELOCYTES % (M) 1 % (0-0); SEGMENTED NEUTROPHILS (M) % 49 % (39-77); SMUDGE%M 10 % (0-0)
[2019-01-20] MEDS: LEVALBUTEROL (NEB) 0.31 MG/3 ML AMP HHN ×3 (01:26→13:27)
[2019-01-20] MEDS: LEVOTHYROXINE 25 MCG TAB PO (06:03)
[2019-01-20] MEDS: FLUTICASONE 0.05% 16 GM NAS SPRAY NASAL (09:08)
[2019-01-20] MEDS: OLOPATADINE 0.1% 5 ML OPH BOTH EYES (09:08)
[2019-01-20] MEDS: HEPARIN 5,000 UNIT/1 ML VIAL SC (09:08)
[2019-01-20] MEDS: ASPIRIN 81 MG TAB PO (09:09)
[2019-01-20] MEDS: predniSONE 10 MG TAB PO (09:09)
[2019-01-20] MEDS: METOPROLOL 25 MG TAB PO (09:09)
[2019-01-20] MEDS: BRIMONIDINE 0.15% 5 ML OPH BOTH EYES (09:10)
[2019-01-21] MEDS ORDERED: predniSONE 20 MG TAB PO (09:00)
== END 2019-01-20 18:24 | disposition home health service (06) | DRG 193 ==
LOC: PP2 01-14 18:56 → E/R 19:18 → 6WM 23:52
PROC: 5A09457 Assistance with Respiratory Ventilation, 24-96 Consecutive Hours, Continuous Positive Airway Pressure (ICD-10-PCS; principal; 2019-01-16)
DX: J18.1 Lobar pneumonia, unspecified organism (principal); J96.21 Acute and chronic respiratory failure with hypoxia; J96.22 Acute and chronic respiratory failure with hypercapnia; E87.1 Hypo-osmolality and hyponatremia; E44.1 Mild protein-calorie malnutrition; I50.30 Unspecified diastolic (congestive) heart failure; Z68.1 Body mass index [BMI] 19.9 or less, adult; D64.9 Anemia, unspecified; D72.829 Elevated white blood cell count, unspecified; E03.9 Hypothyroidism, unspecified; E78.5 Hyperlipidemia, unspecified; H40.9 Unspecified glaucoma; I27.20 Pulmonary hypertension, unspecified; I11.0 Hypertensive heart disease with heart failure; I07.1 Rheumatic tricuspid insufficiency; J20.9 Acute bronchitis, unspecified; J84.10 Pulmonary fibrosis, unspecified; R33.0 Drug induced retention of urine; T48.6X5A Adverse effect of antiasthmatics, initial encounter; Z99.81 Dependence on supplemental oxygen; Z79.82 Long term (current) use of aspirin
CPT/HCPCS: 36600; 71045; 80048; 80061; 81003; 82550; 82553; 82803; 83036; 83735; 83880; 84100; 84439; 84443; 84484; 85025; 87040-91; 87086; 92610; 93005; 93306; 94640; 94644; 94660; 94664; 96374; 96375; 97110; 97116; 97161; 97166; 97530; 97535; 99285-25